=== PATIENT | male | born 1945 | race Caucasian/White ===

== ENCOUNTER 2017-06-16 09:55 | Day surgery (SDC) | payer MEDICARE, BC ==
[2017-06-16] MEDS ORDERED: MIDAZOLAM 2 MG/2 ML INJ ONE (11:22)
[2017-06-16] MEDS ORDERED: HEPARIN SOD (PORCINE) 5,000 UNIT/ML 1 ML SYRINGE ONE (11:22)
[2017-06-16] MEDS ORDERED: FENTANYL CITRATE INJ/PF 100 MCG/2 ML AMPUL ONE (11:22)
[2017-06-16] MEDS ORDERED: LIDOCAINE 0.5% INJ-PF (5 MG/ML) 50 ML SDV ONE (11:22)
[2017-06-16 11:40] LABS: ANION GAP 17 (5-19); BLOOD UREA NITROGEN 32 mg/dL (7-20); CALCIUM 8.7 mg/dL (8.4-10.2); CARBON DIOXIDE 26 mmol/L (22-30); CHLORIDE 99 mmol/L (98-107); CREATININE RESULT 8.46 mg/dL (0.52-1.25); GLUCOSE 89 mg/dL (75-110); POTASSIUM 4.4 mmol/L (3.6-5.0); SODIUM 141.9 mmol/L (137-145)
--- NOTE | 2017-06-16 11:59 | PDOC H&P ---
General Chief Complaint: The patient is referred across for adequate flows in his left arm forearm AV fistula. - Current Medications/Allergies Home Medications: Warfarin Sodium [Coumadin 5 mg Tablet] 10 mg PO QHS 07/31/14 Warfarin Sodium [Coumadin 7.5 mg Tablet] 7.5 mg PO QHS 07/31/14 Atorvastatin Calcium [Lipitor 20 mg Tablet] 20 mg PO QHS 07/31/15 Cinacalcet HCl [Sensipar 30 mg Tablet] 30 mg PO DAILY 07/31/15 Furosemide [Lasix 40 mg Tablet] 40 mg PO QAM 07/31/15 Gabapentin 100 mg PO BID 07/31/15 Lanthanum Carbonate [Fosrenol 500 Mg Chewable Tablet] 500 mg PO AC 07/31/15 Linagliptin [Tradjenta] 5 mg PO DAILY 07/31/15 Metoprolol Succinate 25 mg PO DAILY 07/31/15 [place]-3 Fatty Acids/Fish Oil [Fish Oil 1,200 mg Softgel] 2,400 mg PO DAILY 07/31 Diltiazem HCl [Cardizem] 120 mg PO BID 06/16/17 Tadalafil [Adcirca] 40 mg PO DAILY 06/16/17 Allergies/Adverse Reactions: No Known Allergies Allergy (Verified 06/16/17 10:42) Past Medical History Cardiac Medical History: Reports: Atrial Fibrillation, Congestive Heart Failure , Coronary Artery Disease - high chol, Hyperlipidema, Hypertension Denies: Myocardial Infarction Pulmonary Medical History: Denies: Asthma, Bronchitis, Chronic Obstructive Pulmonary Disease (COPD), Pneumonia, Tuberculosis Neurological Medical History: Denies: Seizures Endocrine Medical History: Reports: Diabetes Mellitus Type 2 Renal/ Medical History: Reports: End Stage Renal Disease GI Medical History: Musculoskeltal Medical History: Reports: Arthritis - LEFT KNEE Hematology: Reports: Anemia Past Surgical History Past Surgical History: Reports: Cholecystectomy, Tonsillectomy Denies: Appendectomy, Coronary Artery Bypass Graft, Gastric Bypass Surgery, Herniorrhaphy, Pacemaker Family History Family History: Reviewed & Not Pertinent Parental Family History Reviewed: No Children Family History Reviewed: No Sibling(s) Family History Reviewed.: No Social History Smoking Status: Never Smoker Frequency of Alcohol Use: None Hx Recreational Drug Use: No Hx Prescription Drug Abuse: No Physical Exam Vital Signs: Temp Pulse Resp BP Pulse Ox 97.4 F 92 20 112/76 98 06/16/17 10:59 06/16/17 10:59 06/16/17 10:59 06/16/17 10:59 06/16/17 10:59 Intake & Output 06/15/17 06/16/17 06/17/17 06:59 06:59 06:59 Weight 117.5 kg Additional comments: Constitutional: Well-developed well-nourished , much increased body mass index gentleman. No apparent acute distress. Eyes: Mucous membranes pink and moist, pupils equal and reactive to light. Conjunctiva normal. Cornea normal. ENT: Hearing grossly normal. External pinna normal to inspection. Teeth, missing cardiac: Heart sounds 1 and 2 normal, no murmurs. Tongue normal to inspection. Chest: Normal to inspection. Respiratory breath sounds are present bilaterally, normal. Normal respiratory effort. Skin: Normal to inspection. No ulcers, normal turgor. Psychiatric: Judgment, memory, insight seem normal. Mood is pleasant and appropriate. Extremities: Upper extremities show normal range of movement. Pulses present noted to the radial arteries. Capillary refill normal. No cyanosis noted. No muscle wasting noted. Left forearm AV fistula based on radiocephalic. Impression/Plan Impression: #1 malfunctioning arteriovenous fistula, left radiocephalic 2. End-stage renal disease on hemodialysis. 3. Diabetes mellitus type 2. 4. Atrial fibrillation. 5 overweight. 6. Hypertension. Plan: In for angioplasty/
--- NOTE | 2017-06-16 12:38 | PDOC DISCHARGE SUMMARY ---
Discharge Summary (SDC) - Discharge Final Diagnosis: #1 malfunctioning arteriovenous fistula, left radiocephalic. 2. End-stage renal disease on hemodialysis. 3. Overweight. 4. Diabetes mellitus type 2. 5. Hypertension. Date of Surgery: 06/16/17 Discharge Date: 06/16/17 Condition: Good Treatment or Instructions: Discharge home [after recovery per ASU criteria]. Diet , [renal],as tolerated, when fully awake advance as tolerated. Activities within moderation encouraged. Follow up in my office by appointment in about [1 week]. Call for appointment. Leave wounds [covered], [keep clean and dry, until hemodialysis]. Meds per med rec. May shower [in 48 hrs], [try to keep operated area as dry as possible]. Discharge Diet: Other (Comments) - renal Respiratory Treatments at Home: Deep Breathing/Coughing Discharge Activity: Activity As Tolerated Report the Following to Your Physician Immediately: Shortness of Breath, Unusual Bleeding
--- NOTE | 2017-06-16 12:48 | Operative Report ---
Operative Report DATE OF SURGERY: 06/16/17 PREOPERATIVE DIAGNOSIS: 1. Malfunctioning arteriovenous fistula, left radiocephalic. 2. End-stage renal disease on hemodialysis. 3. Overweight. 4. Diabetes mellitus type 2. 5. Hypertension. POSTOPERATIVE DIAGNOSIS: 1. Malfunctioning arteriovenous fistula, left radiocephalic. Post angioplasty. 2. End-stage renal disease on hemodialysis. 3. Overweight. 4. Diabetes mellitus type 2. 5. Hypertension. OPERATION: 1. Ultrasound evaluation and real-time access into arteriovenous fistula. 2. Needle access and arteriovenous fistula. 3. Angioplasty. 4. Angiogram and interpretation. SURGEON: HAMILTON AZUL BILLET SAWYER: None ANESTHESIA: Moderate Sedation TISSUE REMOVED OR ALTERED: Nort applicable. COMPLICATIONS: None ESTIMATED BLOOD LOSS: 2 mL. INTRAOPERATIVE FINDINGS: Of a well founded left forearm arteriovenous fistula. Hyper pulsatile in the first 6 or so centimeters. His stenosis appreciated 9 cm to 11 cm, 2 cm long. This responded nicely to dilatation with an 8 mm balloon. From about 80% stenosis only about 5% residual stenosis. Also appropriate softening in the proximal segment and palpability in the cephalad segment. In future in 9 mm balloon might be contemplated for this region. PROCEDURE: PROCEDURE: After verifying the procedure and having obtained informed consent, the patient's left arm and forearm were prepared with Chlorhexidine and draped out with sterile linen. Local anesthesia infiltrated. Percutaneous access into the fistula ,[retrograde], obtained about [20 cm] from the arteriovenous anastomosis using a micro puncture needle followed by micro puncture wire and then a micro puncture catheter. This was done on ultrasound guidance using real-time access into the vein. Ultrasound was also used to size the vein. Angiogram demonstrated the aforementioned findings. Angioplasty was elected. A 0.035 Pansey wire was inserted, and over this, a 6 Ukrainian short introducer was placed, this was followed by a 8 mm angioplasty balloon . Angioplasty was now done at the culprit angioplasty was done using a 3 mils syringe segment. 2 minutes. The outcome was not ideal. An insufflator was now used and inflated to 25 aleks for 1 minute. Hand-held pressure for 10 minutes. Hand-held pressure for 10 minutes]. Completion angiogram demonstrated [satisfactory result]. The instrumentation was now withdrawn over pressure for 10 minuts. Dressings applied, procedure concluded. DICTATING PHYSICIAN: David OJEDA: HAMILTON OCAMPO M.D. ([id number]) >>
[2017-06-16 13:24] VITALS: BP 108/66
--- NOTE | 2017-06-16 14:19 | RADIOLOGY REPORT (SQ) ---
EXAM DESCRIPTION: FISTULAGRAM W/PLASTY COMPLETED DATE/TIME: 06/16/2017 12:40 pm REASON FOR STUDY: T82.858A T82.858A STENOSIS OF OTHER VASCULAR PROSTH DEV/GRFT, INIT COMPARISON: 10/30/2015 FLUOROSCOPY TIME: 0.7 Multiple cine fluoro images saved to PACS. TECHNIQUE: Intra-operative images acquired during surgical procedure to evaluate progress. NUMBER OF IMAGES: Cine fluoroscopic images. LIMITATIONS: None. FINDINGS: Imaging in fluoroscopy during left upper extremity dialysis access evaluation and plasty b y Dr. Byrne . Please refer to the operative report for further details. IMPRESSION: INTRA PROCEDURAL IMAGING ABOVE . COMMENT: Quality ID [id number]: Final reports for procedures using fluoroscopy that document radiation exp osure indices, or exposure time and number of fluorographic images (if radiation exposure indices are not available) Please consult full operative report of the attending physician for description of the procedure. TECHNICAL DOCUMENTATION: JOB ID: [id number] [employer]- All Rights Reserved
== END 2017-06-16 13:28 | disposition home or self-care (01) ==
LOC: SC 09:55
PROVIDERS: ATTEND Surgery
PROC: 057F3DZ Dilation of Left Cephalic Vein with Intraluminal Device, Percutaneous Approach (ICD-10-PCS; principal; 2017-06-16)
DX: T82.858A Stenosis of other vascular prosthetic devices, implants and grafts, initial encounter (principal); Y83.2 Surgical operation with anastomosis, bypass or graft as the cause of abnormal reaction of the patient, or of later complication, without mention of misadventure at the time of the procedure; I13.2 Hypertensive heart and chronic kidney disease with heart failure and with stage 5 chronic kidney disease, or end stage renal disease; I50.9 Heart failure, unspecified; E10.22 Type 1 diabetes mellitus with diabetic chronic kidney disease; N18.6 End stage renal disease; Z99.2 Dependence on renal dialysis; I25.10 Atherosclerotic heart disease of native coronary artery without angina pectoris; I48.91 Unspecified atrial fibrillation; E66.3 Overweight; E78.00 Pure hypercholesterolemia, unspecified; E78.5 Hyperlipidemia, unspecified; M17.12 Unilateral primary osteoarthritis, left knee; D63.1 Anemia in chronic kidney disease; Z79.01 Long term (current) use of anticoagulants; Z79.899 Other long term (current) drug therapy; Z68.41 Body mass index [BMI] 40.0-44.9, adult
CPT/HCPCS: 36415; 80048; 36902; 76937; C1725; C1887; Q9967; C1769; J2250; J1644 ×2; J3010; J3490

== ENCOUNTER 2017-08-12 13:11 | Emergency (ER) | payer MEDICARE, BC ==
--- NOTE | 2017-08-12 14:03 | ER Document Report ---
ED GI/ - General Mode of Arrival: Medic Information source: Patient, Emergency Med Personnel TRAVEL OUTSIDE OF THE [place] IN LAST 30 DAYS: No - HPI Patient complains to provider of: Abdominal pain Onset: Other - SAT. 08/08 PM Timing/Duration: Gradual Quality of pain: Sharp Severity at maximum: Moderate Severity in ED: Moderate Context: denies: Lifting, Recent trauma Location: LLQ Associated symptoms: denies: Chills, Constipation, Diarrhea, Dysuria, Fever, Nausea, Vomiting Exacerbated by: Movement Relieved by: Remaining still Similar symptoms previously: Yes - LESS SEVERE, HAD PULLED MUSCLE IN ABD. Recently seen / treated by doctor: Yes - DR. MOORE, TODAY @ DIALYSIS <JANET ARREGUIN - Last Filed: 08/13/17 01:51> <JOSELO SORIA - Last Filed: 08/13/17 02:22> - General Chief Complaint: Abdominal Pain >50 Stated Complaint: ABDOMINAL PAIN Time Seen by Provider: 08/12/17 14:01 - Related Data Allergies/Adverse Reactions: cephalexin [From Keflex] Allergy (Verified 08/12/17 13:17) Past Medical History - General Information source: Patient - Social History Smoking Status: Unknown if Ever Smoked Frequency of alcohol use: None Drug Abuse: None Lives with: Family Family History: Reviewed & Not Pertinent Patient has suicidal ideation: No Patient has homicidal ideation: No - Past Medical History Cardiac Medical History: Reports: Hx Atrial Fibrillation, Hx Congestive Heart Failure, Hx Coronary Artery Disease - high chol, Hx Hypercholesterolemia, Hx Hypertension Denies: Hx Heart Attack Pulmonary Medical History: Denies: Hx Asthma, Hx Bronchitis, Hx COPD, Hx Pneumonia, Hx Tuberculosis Neurological Medical History: Denies: Hx Cerebrovascular Accident, Hx Seizures Endocrine Medical History: Reports: Hx Diabetes Mellitus Type 2 Renal/ Medical History: Reports: Hx End Stage Renal Disease, Hx Hemodialysis Malignancy Medical History: Reports None GI Medical History: Reports: None Musculoskeltal Medical History: Reports Hx Arthritis - LEFT KNEE Psychiatric Medical History: Reports: None Infectious Medical History: Past Surgical History: Reports: Hx Cholecystectomy, Hx Tonsillectomy. Denies: Hx Appendectomy, Hx Bowel Surgery, Hx Coronary Artery Bypass Graft, Hx Gastric Bypass Surgery, Hx Herniorrhaphy, Hx Pacemaker - Immunizations Hx Diphtheria, Pertussis, Tetanus Vaccination: Yes Hx Pneumococcal Vaccination: 11/10/16 <JANET ARREGUIN - Last Filed: 08/13/17 01:51> Review of Systems - Review of Systems Constitutional: No symptoms reported. denies: Chills, Fever EENT: No symptoms reported Cardiovascular: No symptoms reported Respiratory: No symptoms reported Gastrointestinal: See HPI Genitourinary: See HPI Musculoskeletal: No symptoms reported Skin: No symptoms reported Neurological/Psychological: No symptoms reported <JANET ARREGUIN - Last Filed: 08/13/17 01:51> Physical Exam - Vital signs Interpretation: Hypotensive. No: Tachycardic, Tachypneic, Febrile - General General appearance: Appears well, Alert In distress: None - HEENT Head: Normocephalic Eyes: Normal Conjunctiva: Normal Ears: Normal Nasal: Normal Mouth/Lips: Normal Mucous membranes: Normal - Respiratory Respiratory status: No respiratory distress - Cardiovascular Rhythm: Regular - Abdominal Inspection: Morbidly Obese Tenderness: Tender - LLQ - Extremities General upper extremity: Normal inspection General lower extremity: Normal inspection - Neurological Neuro grossly intact: Yes Cognition: Normal Orientation: AAOx4 - Psychological Associated symptoms: Normal affect, Normal mood - Skin Skin Temperature: Warm Skin Moisture: Dry Skin Color: Normal Skin Turgor: Elastic <JANET ARREGUIN - Last Filed: 08/13/17 01:51> - Vital signs Vitals: Temp Pulse Resp BP Pulse Ox 98.1 F 94 16 86/67 L 100 08/12/17 13:30 08/12/17 13:30 08/12/17 13:30 08/12/17 13:30 08/12/17 13:30 Course - Laboratory Result Diagrams: 08/13/17 00:55 08/12/17 13:40 - Consults DR. Macario MOORE Time consulted: 15:18 DR. AMAYA Time consulted: 00:20 <JANET ARREGUIN - Last Filed: 08/13/17 01:51> - Laboratory Result Diagrams: 08/13/17 00:55 08/12/17 13:40 <JOSELO SORIA - Last Filed: 08/13/17 02:22> - Re-evaluation Re-evalutation: 08/13/17 02:21 Sign-out from Dr. Arreguin: 72 yo male w/ elevated INR and abdominal hematoma. Pt's Hgb dropped and will provide PRBC. Spoke to Dr. Amaya ( [facility] Attending). Still waiting on bed. Recommends 5mg po Vitamin K. (JOSELO SORIA) - Vital Signs Vital signs: Temp Pulse Resp BP Pulse Ox 98.3 F 87 17 106/59 L 95 08/13/17 01:20 08/12/17 18:02 08/13/17 02:00 08/13/17 01:51 08/13/17 02:00 - Laboratory Laboratory results interpreted by me: 08/12/17 08/12/17 08/12/17 13:40 13:40 21:00 RBC 2.86 L Hgb 9.1 L Hct 26.2 L RDW 14.2 H Plt Count 104 L Lymphocytes % 12.7 L PT INR APTT BUN 31 H Creatinine 5.62 H Est GFR ( Amer) 12 L Est GFR (Non-Af Amer) 10 L Total Bilirubin 1.5 H Direct Bilirubin 1.4 H AST 12 L Crossmatch See Detail 08/12/17 08/13/17 21:00 00:55 RBC 2.35 L Hgb 7.4 L Hct 21.4 L RDW Plt Count 98 L Lymphocytes % PT 69.6 H* INR 7.99 H* APTT 112.4 H BUN Creatinine Est GFR ( Amer) Est GFR (Non-Af Amer) Total Bilirubin Direct Bilirubin AST Crossmatch - Consults DR. Macario MOORE Reason for consultation: 08/12/17 15:35 ADVISES EARLY ANTIBx, CT WITH ORAL CONTRAST, NO IV CONTRAST. (JANET ARREGUIN) DR. AMAYA Reason for consultation: 08/13/17 01:51 ACCEPTS PATIENT FOR TRANSFER TO [facility] (JANET ARREGUIN) Critical Care Note - Critical Care Note Total time excluding time spent on procedures (mins): 60 <JANET ARREGUIN - Last Filed: 08/13/17 01:51> <JOSELO SORIA - Last Filed: 08/13/17 02:22> - Critical Care Note Comments: LIFE-THREATENING HEMORRHAGE, COMPLICATED BY COAGULOPTHY AND UNSTABLE HEMODYNAMIC STATUS. COMPLEX DECISION-MAKING. (JANET ARREGUIN) Discharge <JANET ARREGUIN - Last Filed: 08/13/17 01:51> <JOSELO SORIA - Last Filed: 08/13/17 02:22> - Discharge Clinical Impression: Abdominal wall hematoma, Thrombocytopenia, Elevated protime, ESRD (end stage renal disease) on dialysis Condition: Serious Disposition: [facility]
[2017-08-12 14:13] LABS: ABSOLUTE BASOPHILS # (AUTO) 0.1 10^3/uL (0.0-0.2); ABSOLUTE EOSINOPHILS # (AUTO) 0.1 10^3/uL (0.0-0.6); ABSOLUTE LYMPHOCYTES (AUTO) 1.1 10^3/uL (0.5-4.7); ABSOLUTE MONOCYTES (AUTO) 0.9 10^3/uL (0.1-1.4); ABSOLUTE NEUT (AUTO) 6.1 10^3/uL (1.7-8.2); BASOPHILS % (AUTO) 0.6 % (0-2); HEMATOCRIT 26.2 % (37.9-51.0); HEMOGLOBIN 9.1 g/dL (13.5-17.0); HGB HCT DIFFERENCE 1.1; LYMPHOCYTES % (AUTO) 12.7 % (13-45); MEAN CORPUSCULAR HEMOGLOBIN 31.8 pg (27.0-33.4); MEAN CORPUSCULAR HGB CONC 34.8 g/dL (32.0-36.0); MEAN CORPUSCULAR VOLUME 91 fl (80-97); MONOCYTES % (AUTO) 11.4 % (3-13); RED BLOOD COUNT 2.86 10^6/uL (4.35-5.55); RED CELL DISTRIBUTION WIDTH 14.2 % (11.5-14.0); SEGMENTED NEUTROPHILS % (AUTO) 74.3 % (42-78); WHITE BLOOD COUNT 8.3 10^3/uL (4.0-10.5)
[2017-08-12 14:24] LABS: ALANINE AMINOTRANSFERASE 21 U/L (21-72); ALBUMIN 3.7 g/dL (3.5-5.0); ALKALINE PHOSPHATASE 103 U/L (38-126); ANION GAP 14 (5-19); ASPARTATE AMINO TRANSFERASE 12 U/L (17-59); BILIRUBIN,DIRECT 1.4 mg/dL (0.0-0.4); BILIRUBIN,TOTAL 1.5 mg/dL (0.2-1.3); BLOOD UREA NITROGEN 31 mg/dL (7-20); CALCIUM 9.4 mg/dL (8.4-10.2); CARBON DIOXIDE 26 mmol/L (22-30); CHLORIDE 100 mmol/L (98-107); CREATININE RESULT 5.62 mg/dL (0.52-1.25); GLUCOSE 97 mg/dL (75-110); LIPASE 292.1 U/L (23-300); TOTAL PROTEIN 6.4 g/dL (6.3-8.2)
[2017-08-12] MEDS ORDERED: DORIPENEM INJ 500 MG VIAL IV ONE (15:24)
--- NOTE | 2017-08-12 19:31 | RADIOLOGY REPORT (SQ) ---
EXAM DESCRIPTION: CT ABD/PELVIS ORAL ONLY COMPLETED DATE/TIME: 08/12/2017 5:57 pm REASON FOR STUDY: LLQ PAIN COMPARISON: 11/09/2013 TECHNIQUE: CT scan of the abdomen and pelvis performed with oral contrast and no intravenous contras t. Images reviewed with lung, soft tissue, and bone windows. Reconstructed coronal and sagittal MPR i mages reviewed. All images stored on PACS. All CT scanners at this facility use dose modulation, iterative reconstruction, and/or weight based d osing when appropriate to reduce radiation dose to as low as reasonably achievable (ALARA). [facility]: Dose Right [facility]: CareDose [facility]: Dose Right [facility]: Teradose 4D [facility]: [employer] RADIATION DOSE: Up-to-date CT equipment and radiation dose reduction techniques were employed. CTDIv ol: 29.3 mGy. DLP: 1613 mGy-cm.mGy. LIMITATIONS: None. FINDINGS: LOWER CHEST: No significant findings. No nodules or infiltrates. NON-CONTRASTED LIVER, SPLEEN, ADRENALS: Evaluation limited by lack of IV contrast. No identified sign ificant masses. PANCREAS: No masses. No peripancreatic inflammatory changes. GALLBLADDER: Surgically absent. RIGHT KIDNEY AND URETER: Atrophic. Multiple cysts. No hydronephrosis or hydroureter. LEFT KIDNEY AND URETER: Atrophic. Multiple cysts. No hydronephrosis or hydroureter. AORTA AND RETROPERITONEUM: No focal aneurysm. No retroperitoneal masses or adenopathy. BOWEL AND PERITONEAL CAVITY: No obvious masses or inflammatory changes. No free fluid. APPENDIX: Normal. PELVIS, BLADDER, AND ABDOMINAL WALL: 26 x 12 x 8 cm hematoma in the left abdominal wall musculature w ith fluid fluid levels consistent with active bleeding. Bladder unremarkable. BONES: No acute findings. OTHER: No other significant finding. IMPRESSION: 26 x 12 x 8 cm hematoma in the left abdominal wall musculature with fluid fluid levels c onsistent with active bleeding. Consider surgical consultation. TECHNICAL DOCUMENTATION: JOB ID: [id number] Quality ID # [id number]: Final reports with documentation of one or more dose reduction techniques (e.g., Au tomated exposure control, adjustment of the mA and/or kV according to patient size, use of iterative reconstruction technique) 2010 [employer]- All Rights Reserved
[2017-08-12] MEDS ORDERED: HYDROMORPHONE HCL INJ/PF 2 MG/ML AMPULE IV ONE (20:23)
[2017-08-12] MEDS ORDERED: NORMAL SALINE 250 ML IV PRN (20:34)
[2017-08-12 21:45] LABS: PARTIAL THROMBOPLASTIN TIME 112.4 SEC (23.5-35.8)
[2017-08-12 21:58] LABS: PROTHROMBIN TIME 69.6 SEC (11.4-15.4)
--- NOTE | 2017-08-12 23:26 | PDOC CONSULTATION ---
Consultation Consult Date: 08/12/17 Consult reason:: Large abdominal wall hematoma History of Present Illness History of Present Illness: ZEUS ELDRIDGE is a 72 year old male Started complaining of left lower abdominal pains about 4 days ago. He is a dialysis patient. He went to [facility] the next day and seen in the emergency room and a CAT scan of the abdomen without contrast revealed no apparent abnormality according to the patient. However yesterday patient that worsening left lower abdominal pains and then had hemodialysis today and then went to the emergency room. Patient is on Coumadin and his INR is 7.[address] scan of the abdomen showed a 26 cm x 12 cm x 8 cm hematoma with fluid indicating bleeding at the left pelvic area. Patient's platelet also was diminished to 104. His hemoglobin is 9.1. Past Medical History Cardiac Medical History: Reports: Atrial Fibrillation, Congestive Heart Failure , Coronary Artery Disease - high chol, Hyperlipidema, Hypertension Denies: Myocardial Infarction Pulmonary Medical History: Denies: Asthma, Bronchitis, Chronic Obstructive Pulmonary Disease (COPD), Pneumonia, Tuberculosis Neurological Medical History: Denies: Seizures Endocrine Medical History: Reports: Diabetes Mellitus Type 2 Renal/ Medical History: Reports: End Stage Renal Disease Malignancy Medical History: Reports: None GI Medical History: Reports: None Musculoskeltal Medical History: Reports: Arthritis - LEFT KNEE Psychiatric Medical History: Reports: None Hematology: Reports: Anemia Past Surgical History Past Surgical History: Reports: Cholecystectomy, Tonsillectomy Denies: Appendectomy, Coronary Artery Bypass Graft, Gastric Bypass Surgery, Herniorrhaphy, Pacemaker Social History Lives with: Family Smoking Status: Unknown if Ever Smoked Frequency of Alcohol Use: None Hx Recreational Drug Use: No Hx Prescription Drug Abuse: No Family History Family History: Reviewed & Not Pertinent Parental Family History Reviewed: No Children Family History Reviewed: No Sibling(s) Family History Reviewed.: No Medication/Allergy Home Medications: Warfarin Sodium [Coumadin 5 mg Tablet] 10 mg PO QHS 07/31/14 Warfarin Sodium [Coumadin 7.5 mg Tablet] 7.5 mg PO QHS 07/31/14 Atorvastatin Calcium [Lipitor 20 mg Tablet] 20 mg PO QHS 07/31/15 Cinacalcet HCl [Sensipar 30 mg Tablet] 30 mg PO DAILY 07/31/15 Furosemide [Lasix 40 mg Tablet] 40 mg PO QAM 09/22/15 Gabapentin 100 mg PO BID 07/31/15 Lanthanum Carbonate [Fosrenol 500 mg Chewable Tablet] 500 mg PO AC 07/31/15 Linagliptin [Tradjenta] 5 mg PO DAILY 07/31/15 Metoprolol Succinate 25 mg PO DAILY 07/31/15 [place]-3 Fatty Acids/Fish Oil [Fish Oil 1,200 mg Softgel] 2,400 mg PO DAILY 07/31 Diltiazem HCl [Cardizem] 120 mg PO BID 06/16/17 Tadalafil [Adcirca] 40 mg PO DAILY 06/16/17 Allergies/Adverse Reactions: cephalexin [From Keflex] Allergy (Verified 08/12/17 13:17) Review of Systems Review of Systems: GI symptoms complain of left lower flank pains for the past 4 days and worst today. Denies any nausea vomiting diarrhea constipation. He is on hemodialysis. Denies any fever. Denies any lightheadedness. Patient is ambulatory. Denies any seizures. Rest of the systems are negative Constitutional: PRESENT: other - No fever no chills Eyes: PRESENT: other - No visual problems Ears: PRESENT: other - No hearing problems Nose, Mouth, and Throat: PRESENT: other - No headache Cardiovascular: PRESENT: other Respiratory: PRESENT: other - Denies chest pains denies short of breath Gastrointestinal: PRESENT: as per HPI, abdominal pain - Increasing left pelvic and flank pains worse today Musculoskeletal: PRESENT: other - No joint swelling Integumentary: PRESENT: other - Is ecchymosis on the left flank Neurological: PRESENT: other - Denies seizures Psychiatric: PRESENT: other - Denies anxiety Endocrine: PRESENT: other - Denies polyuria polydipsia Hematologic/Lymphatic: PRESENT: easy bruising Physical Exam Vital Signs: Temp Pulse Resp BP Pulse Ox 98.7 F 87 17 103/53 L 96 08/12/17 18:02 08/12/17 18:02 08/12/17 22:12 08/12/17 22:12 08/12/17 22:12 Intake & Output 08/11/17 08/12/17 08/13/17 06:59 06:59 06:59 Weight 116 kg General appearance: PRESENT: mild distress Head exam: PRESENT: atraumatic, normocephalic Eye exam: PRESENT: PERRLA Ear exam: PRESENT: normal external ear exam Mouth exam: PRESENT: moist, tongue midline Throat exam: PRESENT: other - No pharyngeal erythema Neck exam: PRESENT: full ROM Respiratory exam: PRESENT: clear to auscultation davina Cardiovascular exam: PRESENT: RRR Pulses: PRESENT: normal carotid pulses Vascular exam: PRESENT: normal capillary refill GI/Abdominal exam: PRESENT: tenderness - Tenderness along the left flank with ecchymosis difficult to palpate any definite mass but there is some fullness at this area Rectal exam: PRESENT: deferred Extremities exam: PRESENT: full ROM Musculoskeletal exam: PRESENT: full ROM Neurological exam: PRESENT: alert, oriented to person, oriented to place, oriented to time, oriented to situation Psychiatric exam: PRESENT: appropriate affect Skin exam: PRESENT: dry, normal color, warm Results Laboratory Results: 08/12/17 13:40 08/12/17 13:40 08/12/17 08/12/17 08/12/17 13:40 13:40 21:00 WBC 8.3 RBC 2.86 L Hgb 9.1 L Hct 26.2 L MCV 91 MCH 31.8 MCHC 34.8 RDW 14.2 H Plt Count 104 L Seg Neutrophils % 74.3 Lymphocytes % 12.7 L Monocytes % 11.4 Eosinophils % 1.0 Basophils % 0.6 Absolute Neutrophils 6.1 Absolute Lymphocytes 1.1 Absolute Monocytes 0.9 Absolute Eosinophils 0.1 Absolute Basophils 0.1 Sodium 140.0 Potassium 4.0 Chloride 100 Carbon Dioxide 26 Anion Gap 14 BUN 31 H Creatinine 5.62 H Est GFR ( Amer) 12 L Est GFR (Non-Af Amer) 10 L Glucose 97 Calcium 9.4 Total Bilirubin 1.5 H AST 12 L ALT 21 Alkaline Phosphatase 103 Total Protein 6.4 Albumin 3.7 Lipase 292.1 Blood Type O POSITIVE Antibody Screen NEGATIVE Impressions: Abdomen/Pelvis CT 08/12/17 15:24 IMPRESSION: 26 x 12 x 8 cm hematoma in the left abdominal wall musculature with fluid fluid levels consistent with active bleeding. Consider surgical consultation. Assessment & Plan - Diagnosis (1) ESRD (end stage renal disease) on dialysis Is this a current diagnosis for this admission?: Yes (2) Elevated protime Is this a current diagnosis for this admission?: Yes (3) Hematoma Is this a current diagnosis for this admission?: Yes (4) Thrombocytopenia Is this a current diagnosis for this admission?: Yes - Time Time Spent: 50 to 70 Minutes Critical Time spent with patient: 35 or more minutes Anticipated discharge: [facility] - In view of the patient being on dialysis and with markedly abnormal INR, requirement for fresh frozen plasma will be tremendous and he him being on dialysis cardiac function will be able to handle it. Also we do not have any interventional radiologist which may be expertise who may need to may be able to embolize the bleeding vessel. I have discussed to the patient the possibility of being transferred to [facility] while he is still quite stable at this time. Also talked to the ER physician about this. - Plan Summary Plan Summary: Suggest transferred to [facility] Will need factor factor VIII concentrate together with fresh frozen plasma. [facility] will have more supply for this than in her hospital. If worse comes to worse a vascular surgeon may need to be involved for the care of this patient which we do not have anybody here at [facility]. Also we do not have any emergency hemodialysis which the patient will likely need in view of multiple fresh frozen plasma transfusion that he may need. Because of all of the above I think the best care for this patient will be in a [facility] with all the support system and they have.
[2017-08-13] MEDS ORDERED: HYDROMORPHONE HCL INJ/PF 2 MG/ML AMPULE IV ONE (00:07)
[2017-08-13] MEDS ORDERED: HYDROMORPHONE HCL 2 MG TABLET PO ONE ×2 (00:21→08:26)
[2017-08-13] MEDS ORDERED: NORMAL SALINE 1000 ML 300 ML IV ONE (00:36)
[2017-08-13 01:15] LABS: HEMATOCRIT 21.4 % (37.9-51.0); HGB HCT DIFFERENCE 0.8; MEAN CORPUSCULAR HEMOGLOBIN 31.6 pg (27.0-33.4); MEAN CORPUSCULAR HGB CONC 34.7 g/dL (32.0-36.0); MEAN CORPUSCULAR VOLUME 91 fl (80-97); RED BLOOD COUNT 2.35 10^6/uL (4.35-5.55); RED CELL DISTRIBUTION WIDTH 13.9 % (11.5-14.0); WHITE BLOOD COUNT 6.7 10^3/uL (4.0-10.5)
[2017-08-13 01:37] LABS: HEMOGLOBIN 7.4 g/dL (13.5-17.0)
[2017-08-13] MEDS ORDERED: PHYTONADIONE 5 MG TABLET PO ONE (02:20)
[2017-08-13] MEDS: NORMAL SALINE 250 ML IV PRN ×2 (02:39→13:37)
--- NOTE | 2017-08-13 09:16 | ER Document Report ---
Doctor's Note Notes: 08/13/17 09:15 Patient is pending transfer to tertiary [facility] for further evaluation of his abdominal wall hematoma. States that he just received some pain medication but pain is still burning. Does not think that he is getting relief from the pain medication. Requesting another dose of pain medication at this time. Denies any any worsening symptoms. No further complaints at this time. We will continue to follow. 08/13/17 10:38 Apparently there is going to be an extended delay in transfer. At this time will repeat hemoglobin hematocrit and INR. If coagulopathies are improving may consider reconsulting with surgery as well as hospitalist to see if this patient would be appropriate for keeping here versus transferring to another facility. 08/13/17 13:58 No immediate bed available. Patient with persistent coagulopathy and dropping blood pressure. Patient needs urgent transfer. We consulted our surgeon here, Dr. Esposito who is uncomfortable keeping patient here without interventional radiology and active bleed. Was able to contact [facility]. Spoke with surgeon, Dr. Osmany Byrne who has graciously agreed to accept patient has an immediate transfer. Recommends starting another unit of blood and beginning FFP. Will transfer immediately to the ER versus ICU. Critical Care Note - Critical Care Note Total time excluding time spent on procedures (mins): 90 Comments: Approximately 90 minutes were spent taking care of patient due to active bleeding issue with coagulopathy as well as coordinating care with specialists and transferring care. Was hypotensive and tachycardic
[2017-08-13 11:50] LABS: HEMATOCRIT 24.5 % (37.9-51.0); HEMOGLOBIN 8.6 g/dL (13.5-17.0); HGB HCT DIFFERENCE 1.3; MEAN CORPUSCULAR HEMOGLOBIN 31.3 pg (27.0-33.4); MEAN CORPUSCULAR HGB CONC 35.2 g/dL (32.0-36.0); MEAN CORPUSCULAR VOLUME 89 fl (80-97); RED BLOOD COUNT 2.76 10^6/uL (4.35-5.55); WHITE BLOOD COUNT 6.9 10^3/uL (4.0-10.5)
[2017-08-13 13:17] LABS: PROTHROMBIN TIME 31.1 SEC (11.4-15.4)
[2017-08-13] MEDS ORDERED: NORMAL SALINE 250 ML IV PRN ×2 (13:23→13:57)
[2017-08-13 14:36] VITALS: BP 107/60
== END 2017-08-13 14:53 | disposition short-term general hospital (02) ==
LOC: ER 13:11
DX: S30.1XXA Contusion of abdominal wall, initial encounter (principal); X58.XXXA Exposure to other specified factors, initial encounter; D69.6 Thrombocytopenia, unspecified; I95.9 Hypotension, unspecified; I25.10 Atherosclerotic heart disease of native coronary artery without angina pectoris; I12.0 Hypertensive chronic kidney disease with stage 5 chronic kidney disease or end stage renal disease; E11.22 Type 2 diabetes mellitus with diabetic chronic kidney disease; N18.6 End stage renal disease; Z99.2 Dependence on renal dialysis; Z88.1 Allergy status to other antibiotic agents
CPT/HCPCS: 86900; 86901; 36415; 87040; 36430; 86850; 83690; 85025; 85610; 85027; 85730; 80053; 86920; 74176; P9017; P9016; A9270 ×2; J1170; J7030; J7050; J1267; J3490

== ENCOUNTER 2017-11-24 09:50 | Day surgery (SDC) | payer MEDICARE, BC ==
[~2017-11-24 09:50] MED LIST: DIAZEPAM 5 MG TABLET PO PRN; OXYCODONE-ACETAMINOPHEN 5-325 MG TABLET PO PRN
[2017-11-24] MEDS ORDERED: DIAZEPAM 5 MG TABLET ONE (10:31)
[2017-11-24] MEDS ORDERED: OXYCODONE-ACETAMINOPHEN 5-325 MG TABLET ONE (10:32)
[2017-11-24 10:56] LABS: HEMATOCRIT 36.1 % (37.9-51.0); MEAN CORPUSCULAR HEMOGLOBIN 30.6 pg (27.0-33.4); MEAN CORPUSCULAR HGB CONC 33.1 g/dL (32.0-36.0); MEAN CORPUSCULAR VOLUME 92 fl (80-97); RED BLOOD COUNT 3.91 10^6/uL (4.35-5.55); RED CELL DISTRIBUTION WIDTH 16.6 % (11.5-14.0); WHITE BLOOD COUNT 4.1 10^3/uL (4.0-10.5)
[2017-11-24 11:14] LABS: PLATELET COUNT 67 10^3/uL (150-450)
[2017-11-24 11:18] LABS: ANION GAP 16 (5-19); BLOOD UREA NITROGEN 44 mg/dL (7-20); CALCIUM 8.7 mg/dL (8.4-10.2); CARBON DIOXIDE 27 mmol/L (22-30); CHLORIDE 100 mmol/L (98-107); GLUCOSE 109 mg/dL (75-110); SODIUM 142.9 mmol/L (137-145)
[2017-11-24] MEDS ORDERED: LIDOCAINE 0.5% INJ-PF (5 MG/ML) 50 ML SDV ONE (12:09)
[2017-11-24] MEDS ORDERED: MIDAZOLAM 2 MG/2 ML INJ ONE (12:21)
[2017-11-24] MEDS ORDERED: HEPARIN SOD (PORCINE) 5,000 UNIT/ML 1 ML SYRINGE ONE (12:21)
[2017-11-24] MEDS ORDERED: FENTANYL CITRATE INJ/PF 100 MCG/2 ML AMPUL ONE (12:21)
--- NOTE | 2017-11-24 14:00 | PDOC H&P ---
General Chief Complaint: This patient was referred across for pain in the arm on dialysis and also reduced blood flows. - Current Medications/Allergies Home Medications: Atorvastatin Calcium [Lipitor 20 mg Tablet] 20 mg PO QHS 07/31/15 Cinacalcet HCl [Sensipar 30 mg Tablet] 30 mg PO DAILY 07/31/15 Gabapentin 100 mg PO BID 07/31/15 Lanthanum Carbonate [Fosrenol 500 mg Chewable Tablet] 1,000 mg PO AC 07/31/15 Metoprolol Succinate 25 mg PO DAILY 07/31/15 [place]-3 Fatty Acids/Fish Oil [Fish Oil 1,200 mg Softgel] 2,400 mg PO DAILY 07/31 Diltiazem HCl [Cardizem] 120 mg PO BID 06/16/17 Tadalafil [Adcirca] 40 mg PO DAILY 06/16/17 Allergies/Adverse Reactions: cephalexin [From Keflex] Allergy (Verified 11/24/17 09:54) ITCHY, RASH Past Medical History Cardiac Medical History: Reports: Atrial Fibrillation, Congestive Heart Failure , Coronary Artery Disease - high chol, Hyperlipidema, Hypertension Denies: Myocardial Infarction Pulmonary Medical History: Denies: Asthma, Bronchitis, Chronic Obstructive Pulmonary Disease (COPD), Pneumonia, Tuberculosis Neurological Medical History: Denies: Seizures Endocrine Medical History: Reports: Diabetes Mellitus Type 2 Renal/ Medical History: Reports: End Stage Renal Disease GI Medical History: Musculoskeltal Medical History: Reports: Arthritis - L KNEE Hematology: Reports: Anemia Past Surgical History Past Surgical History: Reports: Cholecystectomy, Tonsillectomy Denies: Appendectomy, Coronary Artery Bypass Graft, Gastric Bypass Surgery, Herniorrhaphy, Pacemaker Family History Family History: Reviewed & Not Pertinent Parental Family History Reviewed: No Children Family History Reviewed: No Sibling(s) Family History Reviewed.: No Social History Smoking Status: Never Smoker Frequency of Alcohol Use: None Hx Recreational Drug Use: No Hx Prescription Drug Abuse: No Physical Exam Vital Signs: Temp Pulse Resp BP Pulse Ox 97.4 F 87 20 125/72 94 11/24/17 10:21 11/24/17 10:21 11/24/17 10:21 11/24/17 10:21 11/24/17 10:21 Intake & Output 11/23/17 11/24/17 11/25/17 06:59 06:59 06:59 Weight 117.934 kg Additional comments: Constitutional: Well-developed well-nourished gentleman, much increased body mass index. No apparent acute distress. Eyes: Mucous membranes pink and moist, pupils equal and reactive to light. Conjunctiva normal. Cornea normal. Wears spectacles. ENT: Hearing grossly normal. External pinna normal to inspection. Teeth intact. Tongue normal to inspection. Cardiac: Heart sounds 1 and 2 normal. Respiratory breath sounds are present bilaterally, normal. Normal respiratory effort. Cardiac: Heart sounds 1 and 2 normal. Psychiatric: Judgment, memory, insight seem normal. Mood is pleasant and appropriate. Extremities: Upper extremities show normal range of movement. Pulses present noted to the radial arteries. Capillary refill normal. No cyanosis noted. No muscle wasting noted. Left forearm radiocephalic fistula in place, hyper pulsatile in the first 6 cm. Impression/Plan Plan: Angiogram and possibly angioplasty is recommended. The patient wishes to proceed. He understands the risks, benefits, expected outcome and alternatives.
--- NOTE | 2017-11-24 14:03 | PDOC DISCHARGE SUMMARY ---
Discharge Summary (SDC) - Discharge Final Diagnosis: #1 malfunctioning in left forearm AV fistula. 2. End-stage renal disease on hemodialysis. 3. BMI greater than 40. 4. Atrial fibrillation. 5. Diabetes mellitus type 2. 6. Hypertension. Date of Surgery: 11/24/17 Discharge Date: 11/24/17 Condition: Good Forms: Discharge POC-Surgical Service Treatment or Instructions: Discharge home [after recovery per ASU criteria]. Diet , [renal],as tolerated, when fully awake advance as tolerated. Activities within moderation encouraged. Follow up in my office by appointment in about [1 week]. Call for appointment. Leave wounds [covered], [keep clean and dry, until hemodialysis. Meds per med rec. Hold of on school/work [until evaluation in office]. May shower [in 48 hrs], [try to keep operated area as dry as possible]. Referrals: HAMILTON OCAMPO MD [ACTIVE STAFF] - (Call to schedule follow up) Discharge Diet: Other (Comments) - Diabetic, renal. Respiratory Treatments at Home: Deep Breathing/Coughing Discharge Activity: Activity As Tolerated Report the Following to Your Physician Immediately: Shortness of Breath, Unusual Bleeding
--- NOTE | 2017-11-24 14:09 | Operative Report ---
Operative Report DATE OF SURGERY: 11/24/17 PREOPERATIVE DIAGNOSIS: #1 malfunctioning in left forearm AV fistula. 2. End- stage renal disease on hemodialysis. 3. BMI greater than 40. 4. Atrial fibrillation. 5. Diabetes mellitus type 2. 6. Hypertension. POSTOPERATIVE DIAGNOSIS: #1 malfunctioning in left forearm AV fistula. Post angioplasty. 2. End-stage renal disease on hemodialysis. 3. BMI greater than 40. 4. Atrial fibrillation. 5. Diabetes mellitus type 2. 6. Hypertension. OPERATION: 1. Ultrasound evaluation and real-time access to fistula. 2. Balloon angioplasty in fistula. 3. Drug-eluting balloon angioplasty in fistula. 4. Angiogram and interpretation. SURGEON: HAMILTON AZUL WEATHER OBSERVER: None ANESTHESIA: Moderate Sedation TISSUE REMOVED OR ALTERED: Not applicable. COMPLICATIONS: None. ESTIMATED BLOOD LOSS: 5 mL. INTRAOPERATIVE FINDINGS: Of a well founded arteriovenous fistula left forearm, radiocephalic. Hyper pulsatile in the first 4-6 cm. Cephalad to that softer. This is concordant with the finding on ultrasound which shows an area of stenosis and partial thrombosis at about 9 cm from the anastomosis. Estimated to be 70% of the adjacent lumen. Completely corrected on angiogram with a 9 mm angioplasty balloon. Much improved to palpation. PROCEDURE: PROCEDURE: After verifying the procedure and having obtained informed consent, the patient's left arm and forearm were prepared with Chlorhexidine and draped out with sterile linen. Local anesthesia infiltrated. Percutaneous access into the fistula ,[retrograde], obtained about [20 cm] from the arteriovenous anastomosis using a micro puncture needle followed by micro puncture wire and then a micro puncture catheter. This was done on ultrasound guidance using real-time access into the vein. Ultrasound was also used to size the vein. Angiogram demonstrated the aforementioned findings. Angioplasty was elected. A 0.035 [place] wire was inserted, and over this, a 7 [place] short introducer was placed, this was followed by a 9 mm [place] angioplasty balloon . Angioplasty was now done at the indicated segment. This was done very carefully and in the up to 12 aleks sustained for 2 minutes. Angiogram demonstrated successful outcome. The balloon was now swapped over the wire for a 9 mm drug-eluting angioplasty balloon. Angioplasty was Done at the culprit segment. Inflating up to 11 atmospheres for 2 minutes.]. Completion angiogram demonstrated [satisfactory result]. The instrumentation was now withdrawn over hand-held pressure for 10 minutes. Dressings applied, procedure concluded. Exposure time: 0.6 minutes. Exposure: 2.28 [place]. Contrast: 25 mL of Isovue-M 300 low osmolality. DICTATING PHYSICIAN: HAMILTON OCAMPO M.D. cc: HAMILTON OCAMPO M.D. ([id number]) >>
[2017-11-24 14:23] VITALS: BP 113/67
--- NOTE | 2017-11-24 15:59 | RADIOLOGY REPORT (SQ) ---
EXAM DESCRIPTION: FISTULAGRAM W/PLASTY COMPLETED DATE/TIME: 11/24/2017 1:27 pm REASON FOR STUDY: T82.858A T82.858A STENOSIS OF OTHER VASCULAR PROSTH DEV/GRFT, INIT COMPARISON: 06/16/2017 FLUOROSCOPY TIME: 0.6 minutes 46 images saved to PACS. TECHNIQUE: Intra-operative images acquired during surgical procedure to evaluate progress. NUMBER OF IMAGES: 46 LIMITATIONS: None. FINDINGS: Imaging in fluoroscopy during left upper extremity dialysis access evaluation and plasty b y Dr. Byrne . Please refer to the operative report for further details. IMPRESSION: INTRA PROCEDURAL IMAGING and fluoro ABOVE . COMMENT: Quality ID [id number]: Final reports for procedures using fluoroscopy that document radiation exp osure indices, or exposure time and number of fluorographic images (if radiation exposure indices are not available) Please consult full operative report of the attending physician for description of the procedure. TECHNICAL DOCUMENTATION: JOB ID: [id number] [employer]- All Rights Reserved
== END 2017-11-24 14:35 | disposition home or self-care (01) ==
LOC: CCL 09:50
PROVIDERS: ATTEND Surgery
PROC: 057D3DZ Dilation of Right Cephalic Vein with Intraluminal Device, Percutaneous Approach (ICD-10-PCS; principal; 2017-11-24)
DX: T82.858A Stenosis of other vascular prosthetic devices, implants and grafts, initial encounter (principal); Y83.2 Surgical operation with anastomosis, bypass or graft as the cause of abnormal reaction of the patient, or of later complication, without mention of misadventure at the time of the procedure; I13.2 Hypertensive heart and chronic kidney disease with heart failure and with stage 5 chronic kidney disease, or end stage renal disease; I50.9 Heart failure, unspecified; E11.22 Type 2 diabetes mellitus with diabetic chronic kidney disease; N18.6 End stage renal disease; Z99.2 Dependence on renal dialysis; I25.10 Atherosclerotic heart disease of native coronary artery without angina pectoris; E78.5 Hyperlipidemia, unspecified; E78.00 Pure hypercholesterolemia, unspecified; I48.91 Unspecified atrial fibrillation; M17.12 Unilateral primary osteoarthritis, left knee; D64.9 Anemia, unspecified; Z79.899 Other long term (current) drug therapy; Z88.1 Allergy status to other antibiotic agents
CPT/HCPCS: 36415; 85027; 80048; 36902; 76937; C2623; C1752; C1887; C1894; Q9967; C1769; J1644 ×2; A9270 ×2; J3490; J2250; J3010

== ENCOUNTER 2019-11-15 10:39 | Day surgery (SDC) | payer MEDICARE, BC ==
[2019-11-15 11:48] LABS: ANION GAP 14 (5-19); BLOOD UREA NITROGEN 42 mg/dL (7-20); CALCIUM 8.7 mg/dL (8.4-10.2); CARBON DIOXIDE 27 mmol/L (22-30); CHLORIDE 97 mmol/L (98-107); GLUCOSE 87 mg/dL (75-110); POTASSIUM 5.2 mmol/L (3.6-5.0)
[2019-11-15 12:07] LABS: HEMATOCRIT 35.8 % (37.9-51.0); MEAN CORPUSCULAR HEMOGLOBIN 32.4 pg (27.0-33.4); MEAN CORPUSCULAR HGB CONC 33.6 g/dL (32.0-36.0); MEAN CORPUSCULAR VOLUME 96 fl (80-97); RED BLOOD COUNT 3.72 10^6/uL (4.35-5.55); RED CELL DISTRIBUTION WIDTH 14.2 % (11.5-14.0)
[2019-11-15 12:09] LABS: PLATELET COUNT 84 10^3/uL (150-450)
[2019-11-15] MEDS ORDERED: LIDOCAINE 0.5% INJ-PF (5 MG/ML) 50 ML SDV ONE (12:33)
[2019-11-15] MEDS ORDERED: HEPARIN SOD (PORCINE) 5,000 UNIT/ML 1 ML VIAL ONE (12:34)
[2019-11-15] MEDS ORDERED: MIDAZOLAM 2 MG/2 ML INJ ONE (12:34)
[2019-11-15] MEDS ORDERED: FENTANYL CITRATE INJ/PF 100 MCG/2 ML AMPUL ONE (12:34)
--- NOTE | 2019-11-15 14:02 | Discharge Summary ---
Discharge Summary (SDC) - Discharge Final Diagnosis: #1 malfunctioning AV fistula, left radiocephalic. 2. End-stage renal disease on hemodialysis. 3. Diabetes mellitus type 2. 4. Hypertension. Date of Surgery: 11/15/19 Discharge Date: 11/15/19 Condition: Fair Treatment or Instructions: Discharge home [after recovery per ASU criteria]. Diet , [renal],as tolerated, when fully awake advance as tolerated. Activities within moderation encouraged. Follow up in my office by appointment in about [1 week]. Call for appointment. Leave wounds [covered], [keep clean and dry, until hemodialysis. Follow-up in office by appointment in about 1 month. Meds per med rec. May shower [in 48 hrs], [try to keep operated area as dry as possible]. Referrals: JALIL SERRANO FNP [Primary Care Provider] - Discharge Diet: Other (Comments) - Renal, diabetic. Respiratory Treatments at Home: Deep Breathing/Coughing Discharge Activity: Activity As Tolerated Report the Following to Your Physician Immediately: Unusual Bleeding
--- NOTE | 2019-11-15 14:12 | RADIOLOGY REPORT (SQ) ---
EXAM DESCRIPTION: FISTULAGRAM W/PLASTY COMPLETED DATE/TIME: 11/15/2019 1:44 pm REASON FOR STUDY: T82.858A T82.858A STENOSIS OF OTHER VASCULAR PROSTH DEV/GRFT, INIT COMPARISON: 11/24/2017 FLUOROSCOPY TIME: 1.2 minutes 6 series of digital Images saved to PACS TECHNIQUE: Intra-operative images acquired during surgical procedure to evaluate progress. NUMBER OF IMAGES: 6 series of digital images LIMITATIONS: None. FINDINGS: Intra procedural imaging and fluoroscopy during left upper extremity dialysis access and p lasty. Please see the operative report for further details. IMPRESSION: IMAGE(S) OBTAINED DURING PROCEDURE. COMMENT: Quality ID [id number]: Final reports for procedures using fluoroscopy that document radiation exp osure indices, or exposure time and number of fluorographic images (if radiation exposure indices are not available) Please consult full operative report of the attending physician for description of the procedure. TECHNICAL DOCUMENTATION: JOB ID: [id number] [employer]- All Rights Reserved Reading location - IP/workstation name: [email or web address]
--- NOTE | 2019-11-15 14:13 | PDOC H&P ---
General Chief Complaint: Malfunctioning left forearm radiocephalic fistula noted on dialysis. The patient is referred for a angioplasty or angiogram. - Diagnosis (2) Atrial fibrillation Is this a Current Diagnosis?: Yes (3) Diabetes mellitus type 2 in obese Is this a Current Diagnosis?: Yes (4) End-stage renal disease on hemodialysis Is this a Current Diagnosis?: Yes (5) Hypertension Is this a Current Diagnosis?: Yes - Current Medications/Allergies Home Medications: Atorvastatin Calcium [Lipitor 20 mg Tablet] 20 mg PO QHS 07/31/15 Cinacalcet HCl [Sensipar 30 mg Tablet] 30 mg PO DAILY 07/31/15 Gabapentin 100 mg PO BID 07/31/15 [place]-3 Fatty Acids/Fish Oil [Fish Oil 1,200 mg Softgel] 2,400 mg PO DAILY 07/31/15 Diltiazem HCl [Cardizem] 120 mg PO BID 06/16/17 Tadalafil [Adcirca] 40 mg PO DAILY 06/16/17 Sucroferric Oxyhydroxide [Velphoro] 500 mg PO ASDIR PRN 11/14/19 Allergies/Adverse Reactions: CHLORAPREP Allergy (Unknown, Uncoded 11/15/19 12:44) BROKE OUT IN RASH Past Medical History Cardiac Medical History: Reports: Atrial Fibrillation, Congestive Heart Failure, Coronary Artery Disease - high chol, Hyperlipidema, Hypertension - PULMONARY HTN Denies: Myocardial Infarction Pulmonary Medical History: Denies: Asthma, Bronchitis, Chronic Obstructive Pulmonary Disease (COPD), Pneumonia, Tuberculosis Neurological Medical History: Denies: Seizures Endocrine Medical History: Reports: Diabetes Mellitus Type 2 Renal/ Medical History: Reports: End Stage Renal Disease GI Medical History: Musculoskeltal Medical History: Reports: Arthritis - L KNEE Hematology: Denies: Anemia Past Surgical History Past Surgical History: Reports: Cholecystectomy, Tonsillectomy Denies: Appendectomy, Coronary Artery Bypass Graft, Gastric Bypass Surgery, Herniorrhaphy, Pacemaker Family History Family History: Reviewed & Not Pertinent Parental Family History Reviewed: No Children Family History Reviewed: No Sibling(s) Family History Reviewed.: No Social History Smoking Status: Never Smoker Frequency of Alcohol Use: None Hx Recreational Drug Use: No Hx Prescription Drug Abuse: No Physical Exam Vital Signs: Temp Pulse Resp BP Pulse Ox 97.8 F 86 18 104/55 L 98 11/15/19 10:54 11/15/19 10:54 11/15/19 10:54 11/15/19 10:54 11/15/19 10:54 Intake & Output 11/14/19 11/15/19 11/16/19 06:59 06:59 06:59 Weight 104.326 kg 104.326 kg Additional comments: Constitutional: Well-developed well-nourished gentleman, obese body habitus. No apparent acute distress. Eyes: Mucous membranes pink and moist, pupils equal and reactive to light. Conjunctiva normal. Cornea normal. ENT: Hearing grossly normal. External pinna normal to inspection. Teeth intact. Tongue normal to inspection. Cardiac: Heart sounds 1 and 2 normal, no murmurs. History of atrial fibrillation. Respiratory: breath sounds are present bilaterally, normal. Normal respiratory effort. S Psychiatric: Judgment, memory, insight seem normal. Mood is pleasant and appropriate. Extremities: Upper extremities show normal range of movement. Pulses present noted to the radial arteries. Capillary refill normal. No cyanosis noted. No muscle wasting noted. Left forearm radiocephalic fistula noted. Neurovascular: No apparent tremors, gait limited. Sensation grossly intact. Hearing grossly normal. Vison grossly intact. Impression/Plan Plan: In this patient with a left radiocephalic fistula for hemodialysis, angiogram and possible angioplasty is recommended in order to preserve function. The procedure, its risks, benefits, expected outcome and alternatives are familiar to the patient and he wishes to proceed.
--- NOTE | 2019-11-15 14:19 | Operative Report ---
Operative Report DATE OF SURGERY: 11/15/19 PREOPERATIVE DIAGNOSIS: #1 malfunctioning AV fistula, left radiocephalic. 2. End-stage renal disease on hemodialysis. 3. Diabetes mellitus type 2. 4. Hypertension. POSTOPERATIVE DIAGNOSIS: #1 [address] AV fistula, left radiocephalic. 2. End-stage renal disease on hemodialysis. 3. Diabetes mellitus type 2. 4. Hypertension. OPERATION: 1. Needle access into the left forearm radiocephalic fistula. 2. Angioplasty. 3. Angiogram and interpretation. SURGEON: HAMILTON AZUL LABEL SEWER: None. ANESTHESIA: Moderate Sedation TISSUE REMOVED OR ALTERED: Not applicable. COMPLICATIONS: None. ESTIMATED BLOOD LOSS: 2 mL. INTRAOPERATIVE FINDINGS: Of a well founded left radiocephalic fistula. Somewhat firm in the first 3 cm softer cephalad suggestive of stenosis. Angiogram actually quite normal with robust sized fistula, some possible pseudoaneurysm formation in the midportion. Excellent runoff into both the basilic and brachial systems. At the culprit area about 6 cm from the anastomosis an area of possible valve or leaflet or stenosis appreciated. Angioplasty was done at this area. Not much in the way of a waist. Nevertheless the fistula to palpation was improved post procedure. There was presumably in a stenosis. Ar terial inflow looks brisk. Because of the breathlessness it is hard to distinguish between a possible secondary drainage near to the anastomosis. For this reason the fistula ultrasound is probably indicated in the near future. Any significant drainage might need a secondary ligation. PROCEDURE: PROCEDURE: After verifying the procedure and having obtained informed consent, the patient's left arm was prepared with Chlorhexidine and draped out with sterile linen. Local anesthesia infiltrated. Percutaneous access into the fistula ,[ antegrade], obtained about [2 cm] from the arteriovenous anastomosis using a micro puncture needle followed by micro puncture wire and then a micro puncture catheter. A 0.035 [place] wire was inserted, and over this, a 6 Telugu short introducer was placed. Angiogram demonstrated the aforementioned findings. Angioplasty was elected.. , this was followed by a [7-mm] angioplasty balloon . Angioplasty was s in the culprit area. Inflating inflating using a 3 mils syringe for 30 seconds.]. Completion angiogram demonstrated [satisfactory result]. The instrumentation was now withdrawn over hand pressure for 10 minutes. Dressings applied. Procedure concluded. Exposure time: 1.2 minutes. Radiation: 3.07 mGy. Contrast: 25 mils of Isovue-300, low osmolality. DICTATING PHYSICIAN: HAMILTON OCAMPO M.D. cc: HAMILTON OCAMPO M.D. ([id number]) >>
[2019-11-15 15:03] VITALS: BP 96/55
== END 2019-11-15 15:15 | disposition home or self-care (01) ==
LOC: CCL 10:39
PROVIDERS: ATTEND Surgery
DX: T82.858A Stenosis of other vascular prosthetic devices, implants and grafts, initial encounter (principal); Y83.2 Surgical operation with anastomosis, bypass or graft as the cause of abnormal reaction of the patient, or of later complication, without mention of misadventure at the time of the procedure; I11.9 Hypertensive heart disease without heart failure; E11.22 Type 2 diabetes mellitus with diabetic chronic kidney disease; N18.6 End stage renal disease; Z99.2 Dependence on renal dialysis; Z79.899 Other long term (current) drug therapy; I48.91 Unspecified atrial fibrillation; I25.10 Atherosclerotic heart disease of native coronary artery without angina pectoris; E78.00 Pure hypercholesterolemia, unspecified; E78.5 Hyperlipidemia, unspecified
CPT/HCPCS: 36415; 85027; 80048; 36902; C1752; Q9967; C1769; J2250; J1644 ×2; A9270 ×2; J3010; J3490